=== PATIENT | female | born 1990 | race African-American/Black ===

== ENCOUNTER 2016-10-16 15:20 | Emergency (ER) | payer OTHER ==
[~2016-10-16] VITALS: Ht 160 cm; Wt 68.0 kg
[~2016-10-16 15:20] MED LIST: NKM
[2016-10-16 15:32] VITALS: BP 115/66
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
[2016-10-16] MEDS ORDERED: IBUPROFEN600 MG ORAL (17:14)
[2016-10-16 17:33] VITALS: BP 115/66
--- NOTE | 2016-10-17 10:06 | Diagnostic Imaging Report ---
Indications: Right hip pain Technique: 3 views of the right hand. Findings: Comparison: None. No fracture, dislocation, lytic destruction, periosteal reaction, surrounding soft tissue swelling, or other acute changes are demonstrated. No deformity, alignment abnormality, arthritic change, soft tissue calcification, or other chronic changes are demonstrated. IMPRESSION: Negative right hand series.
== END 2016-10-16 17:33 | disposition home or self-care (01) ==
LOC: EMR 15:56
DX: S00.83XA Contusion of other part of head, initial encounter (principal); Y04.2XXA Assault by strike against or bumped into by another person, initial encounter; Y92.9 Unspecified place or not applicable; M79.641 Pain in right hand; J45.909 Unspecified asthma, uncomplicated
CPT/HCPCS: 29280; 99283

== ENCOUNTER 2019-12-18 11:36 | Emergency (ER) | payer OTHER ==
[~2019-12-18] VITALS: Ht 160 cm; Wt 77.1 kg
[~2019-12-18 11:36] MED LIST changes: +IBUPROFEN600 MG ORAL
--- NOTE | 2019-12-18 11:55 | NUR ---
ED Nurse Note: Patient walked in to the ER from home due to abd pain at mid lower quadrant 10/10 since this morning. Patient is AAOx4 and ambulatory. Denies nausea and vomiting. Per patient she took 2 tylenol tab this am and the medication did not help her
--- NOTE | 2019-12-18 11:59 | NUR ---
ED Nurse Note: ERMD at bedside
[2019-12-18] MEDS ORDERED: Morphine Sulfate 4mg/ml Inj (IV USE ONLY) IVP ONE (12:00)
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
--- NOTE | 2019-12-18 12:30 | NUR ---
ED Nurse Note: BERNICE jade at bedside
[2019-12-18 12:31] LABS: BASOPHILS % (AUTO) 0.3 % (0.0-2.0); EOSINOPHILS % (AUTO) 0.6 % (0.0-3.0); HEMATOCRIT 41.3 % (37.0-47.0); HEMOGLOBIN 15.2 G/DL (12.0-16.0); MEAN CORPUSCULAR VOLUME 93 FL (80-99); MONOCYTES % (AUTO) 3.3 % (1.0-10.0); NEUTROPHILS % (AUTO) 83.8 % (45.0-75.0); PLATELET COUNT 233 K/UL (150-450); RED BLOOD COUNT 4.45 M/UL (4.20-5.40); RED CELL DISTRIBUTION WIDTH 10.9 % (11.6-14.8); WHITE BLOOD COUNT 14.1 K/UL (4.8-10.8)
[2019-12-18 12:35] LABS: APPEARANCE,URINE SLIGHTLY CLOUDY; BILIRUBIN, URINE NEGATIVE (NEGATIVE); GLUCOSE, URINE (UA) NEGATIVE (NEGATIVE); KETONES,URINE 1+ (NEGATIVE); LEUKOCYTE ESTERASE ,URINE 1+ (NEGATIVE); NITRITE,URINE NEGATIVE (NEGATIVE); PH,URINE 8 (4.5-8.0); PROTEIN,URINE 1+ (NEGATIVE); UROBILINOGEN,URINE 1 MG/DL (0.0-1.0)
[2019-12-18 12:37] LABS: COLOR,URINE YELLOW
[2019-12-18 12:46] LABS: ANION GAP 11 mmol/L (5-15); BLOOD UREA NITROGEN 11 mg/dL (7-18); CALCIUM 9.1 MG/DL (8.5-10.1); CARBON DIOXIDE 27 MMOL/L (21-32); CHLORIDE 103 MMOL/L (98-107); CREATININE 0.9 MG/DL (0.55-1.30); POTASSIUM 3.8 MMOL/L (3.5-5.1); SODIUM 140 MMOL/L (136-145)
[2019-12-18 12:53] LABS: ALANINE AMINOTRANSFERASE 21 U/L (12-78); ALBUMIN 4.2 G/DL (3.4-5.0); ALBUMIN/GLOBULIN RATIO 1.1 (1.0-2.7); ALKALINE PHOSPHATASE 82 U/L (46-116); ASPARTATE AMINO TRANSFERASE 22 U/L (15-37); BILIRUBIN,TOTAL 0.8 MG/DL (0.2-1.0)
[2019-12-18 13:03] VITALS: BP 118/68
--- NOTE | 2019-12-18 13:51 | Diagnostic Imaging Report ---
EXAM: CT CT Abdomen Pelvis WO Contrast INDICATION: Abdominal pain and vaginal bleeding. COMPARISON: None TECHNIQUE: Axial images were obtained through the abdomen pelvis without intravenous contrast. Sagittal and coronal reformats are generated. All CT scans at this facility are performed using dose modulation techniques as appropriate to a performed exam including the following: automated exposure control with adjustment of the mA and/or kV according to patient size. RADIATION DOSE: CTDIvol: 6.1 mGy DLP: 297.3 mGy-cm Dose information generated by the CT scanner is available in PACS. FINDINGS: The lung bases are clear. The liver and spleen are homogeneous. Gallbladder is without sludge or stone and there is no wall thickening. The pancreas is unremarkable. Adrenals are normal in morphology. The kidneys are normal in size, shape and axis. Small bowel loops are nondistended. Mild increased stool lucencies noted in the colon. The appendix is normal. Uterus is midline. A small amount of free fluid noted in the cul-de-sac. No pathologic adenopathy demonstrated. Urinary bladder appears unremarkable. There is no suspicious superficial soft tissue or osseous abnormality. IMPRESSION: SMALL AMOUNT OF FREE FLUID IN THE PELVIS PERHAPS PHYSIOLOGIC. OTHERWISE NO SIGN OF ACUTE DISEASE IN THE ABDOMEN AND PELVIS. MILD INCREASED STOOL LUCENCIES THROUGHOUT THE COLON.
--- NOTE | 2019-12-18 14:04 | Diagnostic Imaging Report ---
EXAM: US Pelvic Transabdominal CLINICAL HISTORY: Vaginal bleeding. COMPARISON: None TECHNIQUE: Ultrasound examination of the pelvis includes grayscale images, and color and spectral doppler analysis. FINDINGS: Transabdominal and transvaginal technique utilized. The uterus measures 7.3 x 6 x 4.6 cm. Myometrium is heterogeneous. Endometrial stripe is 5 mm. Right ovary is not definitely seen. There is a hypoechoic structure in the right adnexa with vascular flow of undetermined etiology or significance. It is surrounded by small amount of free fluid. Left ovary measures 2.4 x 2.1 cm with vascular flow. IMPRESSION: UTERUS AND LEFT OVARY APPEAR UNREMARKABLE. NO IUP DEMONSTRATED. RIGHT OVARY IS NOT DEFINITELY SEEN. HYPERECHOIC VASCULAR STRUCTURE IN THE RIGHT ADNEXA OF UNDETERMINED ETIOLOGY OR SIGNIFICANCE. IF PATIENT HAS A POSITIVE TEST, AN ECTOPIC COULD BE CONSIDERED. SMALL AMOUNT OF FREE FLUID.
[2019-12-18] MEDS ORDERED: TRAMADOL HCL50 MG ORAL (14:08)
[2019-12-18] MEDS ORDERED: DOXYCYCLINE MO100 MG ORAL (14:08)
[2019-12-18] MEDS ORDERED: Azithromycin 250mg tab ORAL ONE (14:15)
[2019-12-18] MEDS ORDERED: Lidocaine 1% MPF 10mg/ml 5ml INJ ONE (14:15)
[2019-12-18] MEDS ORDERED: Azithromycin 250mg tab ONE (14:23)
[2019-12-18 14:44] VITALS: BP 118/68
--- NOTE | 2019-12-18 14:45 | NUR ---
ER DISCHARGE NOTE: Patient is cleared to be discharged per ERMD, pt is aox4, on room air, with stable vital signs. pt was given dc and prescription instructions, pt was able to verbalize understanding, pt id band and iv site removed without complications. pt is able to ambulate with steady gait. pt took all belongings.
== END 2019-12-18 14:37 | disposition home or self-care (01) ==
LOC: EMR 11:52
DX: R10.32 Left lower quadrant pain (principal); R10.31 Right lower quadrant pain; R19.09 Other intra-abdominal and pelvic swelling, mass and lump; F15.10 Other stimulant abuse, uncomplicated; Z20.2 Contact with and (suspected) exposure to infections with a predominantly sexual mode of transmission; J45.909 Unspecified asthma, uncomplicated; F17.200 Nicotine dependence, unspecified, uncomplicated; Z72.89 Other problems related to lifestyle
CPT/HCPCS: 36415; 74176; 76830; 76856; 80053; 80307; 81003; 81025; 83690; 83735; 85025; 96361; 96372; 96374; 96375; J0696; J2270; J2405; Q0144; Z7502; 99284; J7030

== ENCOUNTER 2020-08-11 18:53 | Emergency (ER) | payer OTHER ==
[~2020-08-11] VITALS: Ht 160 cm; Wt 69.4 kg
[~2020-08-11 18:53] MED LIST changes: +DOXYCYCLINE MO100 MG ORAL; +TRAMADOL HCL50 MG ORAL
--- NOTE | 2020-08-11 19:20 | NUR ---
ED Nurse Note: Recieved pt walk in from home, here with c/o left second toe pain s/p mechanical fall, pt toe has swelling and deformity, c/o pain at 10/10, denies any other discomforts or complaints, pt ambulating with limp from pain. ice pack applied to area and foot elevated.
[2020-08-11] MEDS ORDERED: Lidocaine 1% MPF 10mg/ml 5ml IM ONE (19:45)
--- NOTE | 2020-08-11 19:45 | Emergency Room Report ---
History of Present Illness General Chief Complaint: Lower Extremity Injury Source: Patient Present Illness HPI 30-year-old female presents to the emergency department complaining of 10 out of 10 severity pain, tenderness and visible deformity to the left second toe x30 minutes. Patient reports she had mechanical trip and fall and in the process her toe was caught on something and twisted. Patient denies hitting her head or having a loss of consciousness. She denies midline neck or back pain. She denies paresthesias. Patient reports past medical history only of asthma she denies any allergies. She denies any open wounds or bleeding. She reports palpation or attempts to bear weight significantly exacerbate her symptoms. Pt. also requesting refill of her Colace and hemorrhoid cream. 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 COVID-19 Screening: Negative COVID-19 COVID-19 Testing Source: 04/2020 Patient History Past Medical History: see triage record Past Surgical History: none Pertinent Family History: none Now: No Reviewed Nursing Documentation: PMH: Agreed; PSxH: Agreed Nursing Documentation-PMH Past Medical History: No History, Except For Hx Asthma: Yes Review of Systems All Other Systems: negative except mentioned in HPI Physical Exam Vital Signs Date Time Temp Pulse Resp B/P (MAP) Pulse Ox O2 Delivery O2 Flow Rate FiO2 08/11/20 19:03 98.2 109 20 134/79 (97) 98 Room Air Sp02 EP Interpretation: reviewed, normal General Appearance: no apparent distress, alert, GCS 15, non-toxic Head: normocephalic, atraumatic Eyes: bilateral eye normal inspection, bilateral eye PERRL ENT: hearing grossly normal, normal voice Neck: full range of motion, no bony tend Respiratory: lungs clear, normal breath sounds, speaking full sentences Cardiovascular #1: regular rate, rhythm, normal capillary refill Rectal: deferred Genitourinary: normal inspection Musculoskeletal: back normal, gait/station normal, tender - left second toe, swelling - left second toe, other - visible deformity of the left second toe Neurologic: alert, motor strength/tone normal, oriented x3, sensory intact, responsive, speech normal Psychiatric: judgement/insight normal Skin: Ecchymosis/Bruising - left second toe Procedures Joint Reduction Joint Reduction : Consent: Verbal Procedural Sedation: No - local anesthesia- digital block performed. Reduction Attempts: One Pre-Procedure NV Exam: Yes Post-Procedure NV Exam: Yes Post Joint Reduction Film: joint reduced Patient Tolerated: Well Complications: None Progress 2nd and 3rd left toes were nick taped together, and pt. placed into a cast shoe by ruling technician. Pt. remains neurovascularly intact. -Patient is provided with crutches and instructed on their use Medical Decision Making DUNG Attestation Dr. Stringer Is my supervising Physician whom patient management has been discussed with. Diagnostic Impression: Primary Impression: Toe fracture, left Qualified Codes: S92.912A - Unspecified fracture of left toe(s), initial encounter for closed fracture Additional Impression: Dislocation of toe of left foot Qualified Codes: S93.105A - Unspecified dislocation of left toe(s), initial encounter ER Course 30-year-old female presents to the emergency department complaining of 10 out of 10 severity pain, tenderness and visible deformity to the left second toe x30 minutes. Patient reports she had mechanical trip and fall and in the process her toe was caught on something and twisted. Patient denies hitting her head or having a loss of consciousness. She denies midline neck or back pain. She denies paresthesias. Patient reports past medical history only of asthma she denies any allergies. She denies any open wounds or bleeding. She reports palpation or attempts to bear weight significantly exacerbate her symptoms. Pt. also requesting refill of her Colace and hemorrhoid cream. Ddx considered but are not limited to Fracture, dislocation, contusion, Sprain/Strain/Spasm Vital signs: are WNL, pt. is afebrile. H&PE are most consistent with musculoskeletal injury will perform imaging to r/o fractures/dislocations. ORDERS: - X-ray Left Toes - POSITIVE for Fracture with anterior dislocation of the proximal phalanx of the left second toe-- per preliminary read in ED, and signed by DUNG Waters, my supervising physician has reviewed, and agrees with my interpretation. ED INTERVENTIONS: - Digital nerve block using 1% lidocaine. - Manual reduction and repositioning of the left second toe. Appeared Clinically reduced. Post reduction film ordered. Pt. given La Ward PO for pain. DISCHARGE: At this time pt. is stable for d/c to home. Will provide printed patient care instructions, and any necessary prescriptions. Care plan and follow up instructions have been discussed with the patient prior to discharge. Other X-Ray Diagnostic Results Other X-Ray Diagnostic Results #1: X-Ray ordered: Left toes # of Views/Limited Vs Complete: 3 View Indication: Pain EP Interpretation: Yes PA Xray: Interpretation reviewed, by supervising MD, and agrees with findings. Interpretation: no soft tissue swelling, other - Dislocation and fracture of the proximal phalanx of the left second toe. Impression: Other - abnormal Electronically Signed by: Nazia Waters PA-C Other X-Ray Diagnostic Results #2: X-Ray ordered: Left Toes # of Views/Limited Vs Complete: 3 View Indication: Pain EP Interpretation: Yes PA Xray: Interpretation reviewed, by supervising MD, and agrees with findings. Interpretation: no dislocation, other Impression: Other - abnormal Electronically Signed by: Nazia Waters PA-C Last Vital Signs Date Time Temp Pulse Resp B/P (MAP) Pulse Ox O2 Delivery O2 Flow Rate FiO2 08/11/20 19:03 98.2 109 20 134/79 (97) 98 Room Air Status: improved Disposition: HOME, SELF-CARE Condition: Stable Scripts Docusate Sodium* (COLACE*) 100 Mg Capsule 100 MG ORAL THREE TIMES A DAY, #90 CAP Prov: Nazia Waters 08/11/20 Hydrocortisone Hc 2.5% Cream (ANUSOL-HC 2.5% CREAM) Y Cr 1 APPLIC RC TID, #30 GM Prov: Nazia Waters 08/11/20 Ibuprofen* (MOTRIN*) 600 Mg Tablet 600 MG ORAL THREE TIMES A DAY, #20 TAB Prov: Nazia Waters 08/11/20 Tramadol Hcl* (ULTRAM*) 50 Mg Tablet 50 MG ORAL Q6H PRN for For Pain, #15 TAB 0 Refills Prov: Nazia Waters 08/11/20 Referrals: [facility],REFERRING (PCP) Orthopedic Urgent Care Patient Instructions: Toe Dislocation, [id number], Toe Fracture, [id number] Additional Instructions: Take medications as directed. Do not drink alcohol, drive, or operate heavy machinery while taking La Ward as this may cause drowsiness. Follow up with an SEWER PIPE LAYER HELPER in 3-5 days, even if your symptoms have resolved. If symptoms persist MRI may be required at the discretion of your PCP or Ortho Specialist. --Please review list of primary care clinics, if you do not already have a primary care provider who can give you an Orthopedic Referral. Return sooner to ED if new symptoms occur, or current symptoms become worse. - Please note that this Emergency Department Report was dictated using [employer] technology software, occasionally this can lead to erroneous entry secondary to interpretation by the dictation equipment. Nazia Waters Aug 11, 2020 19:45
[2020-08-11] MEDS ORDERED: HYDROcodone/Acetamin 5/325 tab ORAL ONE (20:00)
[2020-08-11] MEDS ORDERED: IBUPROFEN600 M1 ORAL (20:26)
[2020-08-11] MEDS ORDERED: TRAMADOL HCL50 MG ORAL (20:26)
[2020-08-11] MEDS ORDERED: ANUSOL-HC30 GM RC (20:38)
[2020-08-11] MEDS ORDERED: COLACE100 MG ORAL (20:38)
[2020-08-11 20:55] VITALS: BP 134/79
--- NOTE | 2020-08-11 20:55 | NUR ---
ER DISCHARGE NOTE: Patient is cleared to be discharged per ERMD, pt is aox4, on room air, with stable vital signs. pt was given dc and prescription instructions, pt was able to verbalize understanding, pt id band removed without complications. pt is able to ambulate with steady gait. pt took all belongings. pt given crutches with crutch training, return demonstrates proper use, pt also reports pain at 0/10, meds given effective.
--- NOTE | 2020-08-12 10:57 | Diagnostic Imaging Report ---
Indication: Left toe/foot pain status post trauma Technique: 3 views of the left toes Comparison: None Findings: Bony mineralization within normal limits. There is an acute intra-articular fracture involving the head of the second proximal phalanx. There is associated dislocation at the second proximal interphalangeal joint. No additional acute fractures identified. Lisfranc alignment is maintained. IMPRESSION: Acute, displaced fracture of the head of the second proximal phalanx. Associated dislocation of the second proximal interphalangeal joint.
--- NOTE | 2020-08-12 11:33 | Diagnostic Imaging Report ---
Indication: Toe pain, fracture Technique: 3 views of the left toes Comparison: Earlier the same day Findings: Improved alignment status post external reduction with successful reduction of the previously seen dislocation at the second proximal interphalangeal joint. Intra-articular fracture of the distal aspect of the second proximal phalanx is again seen. No new fractures identified. No radiopaque foreign body. IMPRESSION: Successful reduction of the previously seen dislocation at the second proximal interphalangeal joint. Fracture of the head of the second proximal phalanx, similar to the prior exam. No new fracture appreciated.
== END 2020-08-11 20:55 | disposition home or self-care (01) ==
LOC: EMR 19:19
DX: S92.512A Displaced fracture of proximal phalanx of left lesser toe(s), initial encounter for closed fracture (principal); J45.909 Unspecified asthma, uncomplicated; X50.1XXA Overexertion from prolonged static or awkward postures, initial encounter; Y93.89 Activity, other specified; Y92.9 Unspecified place or not applicable
CPT/HCPCS: 28515; 73660; Z7502; 99284